=== PATIENT | female | born 1980 | race Caucasian/White ===

== ENCOUNTER 2019-11-25 07:29 | Outpatient (CLI) | payer OTHER, SELFPAY ==
[2019-11-25 08:15] LABS: Beta HCG Quantitative < 2.39 mIU/ML
== END 2019-11-25 07:30 | disposition home or self-care (01) ==
PROVIDERS: PCP Physician Assistant; Visit Provider Obstetrics & Gynecology
DX: Z30.09 Encounter for other general counseling and advice on contraception (principal)
CPT/HCPCS: 36415; 84702